=== PATIENT | female | born 1995 | race Two or more races ===

== ENCOUNTER 2023-11-18 11:35 | Outpatient (CLI) | payer OTHER ==
[~2023-11-18 11:35] MED LIST: ONDANSETRON ODT8 MG PO; PEPCID AC20 MG PO
== END 2023-11-18 11:37 | disposition home or self-care (01) ==
LOC: PRENATAL 11:35
PROVIDERS: ATTEND Obstetrics & Gynecology Maternal & Fetal Medicine
DX: O36.80X0 Pregnancy with inconclusive fetal viability, not applicable or unspecified (principal); Z36.82 Encounter for antenatal screening for nuchal translucency; O34.10 Maternal care for benign tumor of corpus uteri, unspecified trimester; Z3A.11 11 weeks gestation of pregnancy

== ENCOUNTER 2023-12-09 08:18 | Emergency (ER) | payer OTHER ==
[~2023-12-09] VITALS: Ht 160 cm; Wt 68.5 kg
[2023-12-09] MEDS ORDERED: PRENA1 TRUE CO1 EACH (08:26)
[2023-12-09 09:37] LABS: HEMATOCRIT 36.5 % (36.0-45.00); HEMOGLOBIN 12.2 g/dL (12.0-15.00); MEAN CELL VOLUME 86.7 fL (80.00-100.00); MEAN CORPUSCULAR HEMOGLOBIN 29.1 pg (27.00-32.0); MEAN CORPUSCULAR HGB CONC 33.6 g/dl (32.0-36.0); PLATELET COUNT 281 K/uL (150-450); RED BLOOD COUNT 4.21 M/uL (4.00-6.00); RED CELL DISTRIBUTION WIDTH 13.8 % (11.5-14.5)
[2023-12-09 10:20] LABS: URINE APPEARANCE Clear; URINE BILIRRUBIN Negative (NEGATIVE); URINE BLOOD Small; URINE COLOR Yellow; URINE GLUCOSE Negative (NEGATIVE); URINE LEUKOCYTE Trace; URINE NITRATE Negative; URINE PROTEIN Negative (NEGATIVE); URINE UROBILINOGEN 0.2 E.U./dl
[2023-12-09 10:22] LABS: URINE BACTERIA 586.9 uL (0.0-1933); URINE EPITHELIAL CELLS 4.3 uL (0.0-38.8); URINE RBC 80.6 uL (0.0-20.8); URINE WBC 51.9 uL (0.0-23.2)
== END 2023-12-09 11:24 | disposition home or self-care (01) ==
LOC: ER 08:18
PROVIDERS: Emergency Medicine
DX: O99.891 Other specified diseases and conditions complicating pregnancy (principal); Z3A.14 14 weeks gestation of pregnancy; Z87.442 Personal history of urinary calculi; N23 Unspecified renal colic; N20.0 Calculus of kidney

== ENCOUNTER 2024-01-19 08:03 | Outpatient (CLI) | payer OTHER ==
[~2024-01-19 08:03] MED LIST changes: +PRENA1 TRUE CO1 EACH
== END 2024-01-19 08:04 | disposition home or self-care (01) ==
LOC: PRENATAL 08:03
PROVIDERS: ATTEND Obstetrics & Gynecology Maternal & Fetal Medicine
DX: O35.9XX0 Maternal care for (suspected) fetal abnormality and damage, unspecified, not applicable or unspecified (principal); O35.3XX0 Maternal care for (suspected) damage to fetus from viral disease in mother, not applicable or unspecified; O44.02 Complete placenta previa NOS or without hemorrhage, second trimester; O34.12 Maternal care for benign tumor of corpus uteri, second trimester; Z3A.20 20 weeks gestation of pregnancy

== ENCOUNTER 2024-04-12 10:28 | Outpatient (CLI) | payer OTHER | END 2024-04-12 10:29 | disposition home or self-care (01) | LOC: PRENATAL 10:28 | PROVIDERS: ATTEND Obstetrics & Gynecology Maternal & Fetal Medicine | DX: O26.849 Uterine size-date discrepancy, unspecified trimester (principal); O36.8199 Decreased fetal movements, unspecified trimester, other fetus; O34.10 Maternal care for benign tumor of corpus uteri, unspecified trimester; Z3A.32 32 weeks gestation of pregnancy ==

== ENCOUNTER 2024-05-29 10:25 | Inpatient (IN) | payer OTHER ==
[~2024-05-29] VITALS: Ht 160 cm; Wt 75.7 kg
[2024-05-29 09:47] VITALS: BP 126/83
[2024-05-29] MEDS ORDERED: RINGERS SOLUTION,LACTATED 1,000 ML IV SCH (11:00)
[2024-05-29] MEDS ORDERED: ACETAMINOPHEN 500 MG GEL..CAP PO ONE ×2 (11:14→11:15)
[2024-05-29 11:41] LABS: URINE APPEARANCE Cloudy; URINE BACTERIA 6106.3 uL (0.0-1933); URINE BILIRRUBIN Negative (NEGATIVE); URINE COLOR Yellow; URINE EPITHELIAL CELLS 15.3 uL (0.0-38.8); URINE GLUCOSE Negative (NEGATIVE); URINE KETONE Negative (NEGATIVE); URINE LEUKOCYTE Moderate; URINE NITRATE Negative; URINE PROTEIN 30 (NEGATIVE); URINE RBC 10.9 uL (0.0-20.8); URINE UROBILINOGEN 0.2 E.U./dl; URINE WBC 234.7 uL (0.0-23.2)
[2024-05-29 11:47] LABS: HEMATOCRIT 38.9 % (36.0-45.00); HEMOGLOBIN 13.2 g/dL (12.0-15.00); MEAN CELL VOLUME 88.1 fL (80.00-100.00); PLATELET COUNT 216 K/uL (150-450); RED BLOOD COUNT 4.41 M/uL (4.00-6.00)
[2024-05-29 11:54] LABS: URINE BLOOD TRACE
[2024-05-29 11:55] LABS: URINE CRYSTALS NEGATIVE /HPF; URINE MUCUS MODERATE
[2024-05-29 11:56] LABS: RED CELL DISTRIBUTION WIDTH 16.6 % (11.5-14.5)
[2024-05-29 12:06] LABS: INR < 0.93; PARTIAL THROMBOPLASTIN TIME 28.3 SECONDS (22.0-34.0); PROTHROMBIN TIME 9.8 SECONDS (9.0-11.5)
[2024-05-29 12:13] LABS: ALBUMIN 2.9 gm/dL (3.4-5.0); BILIRUBIN TOTAL 0.45 mg/dL (0.3-1.2); CREATININE SERUM 0.64 mg/dL (0.55-1.02); GFR 108.23; GLOBULINA 3.9 G/DL (2.4-3.5); POTASSIUM 3.74 mEq/L (3.5-5.1); TOTAL PROTEIN 6.8 gm/dL (6.4-8.2)
[2024-05-29 12:38] VITALS: BP 138/84
[2024-05-29] MEDS ORDERED: MORPHINE SULFATE 4 MG/ML CARTRIDGE IV ONE (12:45)
[2024-05-29 14:30] VITALS: BP 126/83
[2024-05-29] MEDS ORDERED: PEPCID AC20 MG PO (14:35)
[2024-05-29] MEDS ORDERED: IRON240 MG PO (14:35)
[2024-05-29 15:11] VITALS: BP 135/82; O2SAT 100
[2024-05-29] MEDS ORDERED: MEPERIDINE HCL/PF 25 MG/ML VIAL IV ONE (17:30)
[2024-05-29] MEDS ORDERED: PROMETHAZINE HCL 25 MG/ML AMPUL IV ONE (17:30)
[2024-05-29] MEDS ORDERED: OXYTOCIN 500 ML IV SCH (18:00)
[2024-05-29 20:22] VITALS: BP 148/80; O2SAT 98
[2024-05-29] MEDS ORDERED: ACETAMINOPHEN 500 MG GEL..CAP PO PRN (22:15)
[2024-05-29] MEDS ORDERED: OXYTOCIN 1,000 ML IV SCH (22:15)
[2024-05-29] MEDS ORDERED: CHLORHEXIDINE GLUCONATE 120 ML BOTTLE TOP ONE (22:30)
[2024-05-29] MEDS ORDERED: ERYTHROMYCIN BASE OPHT 1GM EACH TUBE OP ONE (22:30)
[2024-05-29] MEDS ORDERED: LIDOCAINE HCL 1% 10ML VIAL IJ ONE (22:30)
[2024-05-29 23:21] VITALS: BP 126/79
[2024-05-30 00:22] VITALS: BP 108/67
[2024-05-30 02:33] LABS: HEMATOCRIT 34.5 % (36.0-45.00); HEMOGLOBIN 11.5 g/dL (12.0-15.00); MEAN CELL VOLUME 89.8 fL (80.00-100.00); MEAN CORPUSCULAR HGB CONC 33.4 g/dl (32.0-36.0); PLATELET COUNT 216 K/uL (150-450); RED BLOOD COUNT 3.84 M/uL (4.00-6.00); RED CELL DISTRIBUTION WIDTH 16.2 % (11.5-14.5)
[2024-05-30 07:44] VITALS: BP 114/76
[2024-05-30] MEDS ORDERED: PNV,CALCIUM 72/IRON/FOLIC ACID 1 TAB TABLET PO SCH (09:00)
[2024-05-30 16:38] VITALS: BP 103/63
[2024-05-31 01:00] VITALS: BP 114/75
[2024-05-31 08:13] VITALS: BP 108/68
== END 2024-05-31 11:54 | disposition home or self-care (01) | DRG 807 ==
LOC: OBS/DEL 10:25 → OB/GYN 14:31 → LDR 14:31 → OB/GYN 22:20
PROVIDERS: Student in an Organized Health Care Education/Training Program; ADMIT Obstetrics & Gynecology; ATTEND Obstetrics & Gynecology
PROC: 10E0XZZ Delivery of Products of Conception, External Approach (ICD-10-PCS; principal; 2024-05-29)
PROC: 0UQMXZZ Repair Vulva, External Approach (ICD-10-PCS; 2024-05-29)
PROC: 0UQG7ZZ Repair Vagina, Via Natural or Artificial Opening (ICD-10-PCS; 2024-05-29)
PROC: 4A1HXCZ Monitoring of Products of Conception, Cardiac Rate, External Approach (ICD-10-PCS; 2024-05-29)
DX: O70.0 First degree perineal laceration during delivery (principal); Z37.0 Single live birth; Z3A.39 39 weeks gestation of pregnancy; Z20.822 Contact with and (suspected) exposure to COVID-19

== ENCOUNTER 2024-11-17 08:42 | Outpatient (CLI) | payer OTHER ==
[~2024-11-17 08:42] MED LIST changes: +IRON240 MG PO
== END 2024-11-17 08:53 | disposition home or self-care (01) ==
LOC: SONOGRAMA 08:42
PROVIDERS: ATTEND Obstetrics & Gynecology
DX: R10.2 Pelvic and perineal pain (principal)